=== PATIENT | male | born 1950 | race Caucasian/White ===

== ENCOUNTER 2019-08-31 08:02 | Day surgery (SDC) ==
--- NOTE | 2019-08-19 08:37 | EKG Report ---
Test Performed on : 08/19/2019 08:29:56 AM Test Reason : PAT Blood Pressure : / mmHG Vent. Rate : 064 BPM Atrial Rate : 064 BPM P-R Int : 168 ms QRS Dur : 086 ms QT Int : 386 ms P-R-T Axes : 072 051 067 degrees QTc Int : 398 ms Normal sinus rhythm. Normal ECG When compared with ECG of 22-APR-2019 08:07, No significant change was found Confirmed by Timbo RODRIGUES, P.J.M ([id number]) on 08/19/2019 7:59:19 PM
[2019-08-19 08:50] LABS: URINE SOURCE CLEAN CATCH
[2019-08-19 09:06] LABS: BASO# 0.03 X1000 (0.0-0.2); BASO% 0.5 % (0.0-0.8); EOS# 0.14 X1000 (0.0-0.7); EOS% 2.5 % (0.0-10.0); HEMATOCRIT 42.6 % (42.0-52.0); HEMOGLOBIN 13.9 g/dL (14.0-18.0); IMM GRAN# 0.02 X1000 (0.0-0.04); IMM GRAN% 0.4 % (0.0-0.5); LYMPH# 1.33 X1000 (1.2-3.4); LYMPH% 23.6 % (20.5-51.1); MCH 27.9 PG (27-31); MCHC 32.6 g/dL (33-37); MCV 85.4 FL (81-99); MONO# 0.34 X1000 (0.11-0.59); MPV 9.7 FL (7.4-10.4); NEUT# 3.77 X1000 (1.4-6.5); PLT 198 X1000 (130-400); RBC 4.99 XMIL (4.7-6.1); RDW 12.8 % (11.5-14.5); WBC 5.63 X1000 (4.8-10.8)
[2019-08-19 09:15] LABS: BILIRUBIN URINE NEGATIVE (NEGATIVE); BLOOD URINE NEGATIVE (NEGATIVE); COLOR YELLOW; GLUCOSE URINE NEGATIVE (NEGATIVE); KETONE URINE NEGATIVE (NEGATIVE); LEUKOCYTES URINE NEGATIVE (NEGATIVE); NITRITE URINE NEGATIVE (NEGATIVE); PH URINE 6.5; PROTEIN URINE NEGATIVE (NEGATIVE); SP GRAVITY URINE 1.017; TURBIDITY URINE CLEAR (CLEAR); UROBILINOGEN URINE NORMAL (NORMAL)
[2019-08-19 09:16] LABS: UR EPITHELIAL CELLS <10 /HPF (<10); URINE BACTERIA NEGATIVE /HPF; URINE RBC <10 /HPF (<10); URINE WBC <10 /HPF (<10)
[2019-08-19 09:23] LABS: INR 1.07
[2019-08-19 09:24] LABS: PTT 27.8 Seconds (22.3-41.8)
[2019-08-19 09:36] LABS: HEMOGLOBIN A1C 5.6 % (4.8-6.0)
[2019-08-19 09:43] LABS: AGAP 13; ALBUMIN 4.4 g/dL (3.5-5.0); BUN 18 mg/dL (8-22); CALCIUM 9.5 mg/dL (8.8-10.2); CHLORIDE 100 mmol/L (98-107); COSMO 275; ESTIMATED GFR > 60; GLUCOSE 93 mg/dL (70-104); POTASSIUM 4.2 mmol/L (3.5-5.1); SODIUM 137 mmol/L (136-145); TCO2 24 mmol/L (25-35)
[2019-08-31] MEDS ORDERED: VERSED ONE (08:14)
[2019-08-31] MEDS ORDERED: FENTANYL ONE (08:14)
[2019-08-31] MEDS ORDERED: XYLOCAINE-MPF 2% ONE (08:15)
[2019-08-31] MEDS ORDERED: DECADRON ONE (08:15)
[2019-08-31] MEDS ORDERED: OFIRMEV 1000 MG/ISOTONIC SOLN 1,000 MG/100 ML BOTTLE ONE (08:15)
[2019-08-31] MEDS ORDERED: ZOFRAN ONE (08:15)
[2019-08-31] MEDS ORDERED: COLACE ONE (08:35)
[2019-08-31] MEDS ORDERED: LYRICA ONE (08:36)
[2019-08-31] MEDS ORDERED: LR 1,000 ML ONE (08:36)
[2019-08-31] MEDS ORDERED: PEPCID ONE (08:36)
[2019-08-31] MEDS ORDERED: KEFZOL 1 GM/D5W 2 GM/100 ML IVPB ONE (08:36)
[2019-08-31] MEDS ORDERED: REGLAN ONE (08:36)
[2019-08-31] MEDS ORDERED: CELEBREX ONE (08:36)
[2019-08-31] MEDS ORDERED: DUONEB (A & A) ONE (09:34)
[2019-08-31] MEDS ORDERED: DIPRIVAN 1% 500 MG/50 ML BOTTLE ONE (10:03)
[2019-08-31] MEDS ORDERED: VANCOMYCIN ONE (10:09)
[2019-08-31] MEDS ORDERED: TORADOL ONE (10:09)
[2019-08-31] MEDS ORDERED: DURAMORPH ONE (10:09)
[2019-08-31] MEDS ORDERED: MARCAINE 0.25% PF ONE (10:09)
[2019-08-31] MEDS ORDERED: EXPAREL 1.3% ONE (10:10)
[2019-08-31] MEDS ORDERED: CYKLOKAPRON 1,000 MG/NS 2,000 MG/200 ML IVPB ONE (10:10)
[2019-08-31] MEDS ORDERED: SODIUM CHLORIDE 0.9% ONE (10:10)
[2019-08-31] MEDS ORDERED: DIPRIVAN 1% ONE (12:44)
[2019-08-31] MEDS ORDERED: OXY IR PO PRN (13:00)
[2019-08-31] MEDS ORDERED: MILK OF MAGNESIA PO PRN (13:00)
[2019-08-31] MEDS ORDERED: ZOFRAN IV PRN (13:00)
[2019-08-31] MEDS ORDERED: MORPHINE IV PRN ×3 (13:00)
[2019-08-31] MEDS ORDERED: ZOFRAN ODT PO PRN (13:00)
[2019-08-31] MEDS ORDERED: NS 1,000 ML ONE (13:25)
[2019-08-31 13:44] LABS: URINE SOURCE CATH
[2019-08-31 14:03] LABS: BILIRUBIN URINE NEGATIVE (NEGATIVE); BLOOD URINE NEGATIVE (NEGATIVE); COLOR YELLOW; GLUCOSE URINE NEGATIVE (NEGATIVE); KETONE URINE NEGATIVE (NEGATIVE); LEUKOCYTES URINE NEGATIVE (NEGATIVE); NITRITE URINE NEGATIVE (NEGATIVE); PH URINE 6.5; PROTEIN URINE NEGATIVE (NEGATIVE); SP GRAVITY URINE 1.015; TURBIDITY URINE CLEAR (CLEAR); UROBILINOGEN URINE NORMAL (NORMAL)
[2019-08-31 14:06] LABS: UR EPITHELIAL CELLS <10 /HPF (<10); URINE BACTERIA NEGATIVE /HPF; URINE RBC <10 /HPF (<10); URINE WBC <10 /HPF (<10)
[2019-08-31] MEDS: NS 1,000 ML IV SCH (17:23)
[2019-08-31] MEDS: ULTRAM PO SCH ×2 (17:24→21:05)
[2019-08-31] MEDS: TYLENOL PO SCH ×2 (17:24→21:04)
[2019-08-31] MEDS ORDERED: VENTOLIN HFA INH PRN (17:28)
--- NOTE | 2019-08-31 17:39 | OPERATIVE NOTE ---
PROCEDURE DATE: 08/31/2019 PREOPERATIVE DIAGNOSIS: Left knee degenerative joint disease. POSTOPERATIVE DIAGNOSIS: Left knee degenerative joint disease. PROCEDURE PERFORMED: Left total knee arthroplasty using a [facility] size 7 femoral component, size 7 tibial base plate, a 14 mm articular insert and a 35 mm patellar component. ANESTHESIA: Spinal. SURGEON: Aime Neri MD. WATER POLLUTION CONTROL INSPECTOR: VANESSA Salas, who was present throughout the case and whose assistance was necessary for successful completion of the case. BLOOD LOSS: Minimal. TOURNIQUET TIME: Approximately an hour. DESCRIPTION OF PROCEDURE: The patient was brought to the operative suite and placed in a supine position. After successful administration of spinal anesthesia, a well-padded tourniquet was placed on left proximal thigh. The left lower extremity was prepped and draped in usual sterile fashion. Leg was exsanguinated. Tourniquet insufflated to 350 torr. A longitudinal incision was made beginning at the superior pole of patella and extended distally to the tibial tuberosity. A medial arthrotomy was made with the elevation of the capsule off the medial tibial plateau. The ACL, PCL, medial meniscus and lateral meniscus were excised. A drill was entered in the distal femur. Intramedullary guide was placed. Distal cutting block was pinned in placed. Distal cut was made with oscillating saw. Attention was then directed to the tibia. A drill was entered in the center tibia. Intramedullary guide was placed. Alignment was checked with drop sarah referencing off the anterior cortex of the tibia and the second ray of the foot and taking 4 mm off the low side of the tibia, which in this case was medially. The articular surface of the tibial plateau was removed with oscillating saw. Being certain all meniscal tissue was removed, he was found to be in extension tight medially. A medial release was performed, and the knee was balanced at 14 mm after setting rotation using the gap balancing method set to 23 mm, and the femur was sized to a size 7. A size 7 cutting block was pinned into place. The anterior cuts, chamfer cuts, and posterior condylar cuts were made with an oscillating saw. The box cutting block was pinned into place. A box cut was made with a box osteotome and oscillating saw. Posterior condyle osteophytes were removed with a curved osteotome and rongeur. Attention was then directed back to the tibia. The tibia was sized to a size 7. A size 7 guide was used for the fin punch. The tibial trial, femoral trial and 14 mm articular insert were placed, taken through range of motion and found to have excellent alignment, balancing range of motion. Attention was directed to the patella, and 9 mm of the articular surface of the patella was removed with oscillating saw, patella sized to a size 35. A size 35 guide was used to drill peg holes. Lateral facet was chamfered 30 to 45 degrees. Patella trial was placed and taken through range of motion and found to have excellent patella tracking. All trials were then removed. The knee was copiously irrigated and dried, being certain all bone debris was removed. The tibial component, femoral component, and patellar component were cemented into place, and excess cement being removed with a [place]. Once the cement had hardened, excess cement was again removed with osteotome. The knee was again copiously irrigated and dried, being certain all bone, and cement were removed. The trial articular insert was removed. The knee was copiously infiltrated with Exparel, including posterior capsule, anterior capsule, intermuscular, and subcutaneous tissue. The tourniquet was deflated, and hemostasis was obtained with electrocautery. The definitive 14 mm insert was locked into place. The knee was again copiously irrigated with normal saline containing irrigant and Vashe irrigation. Medial arthrotomy was closed with 0 V-Loc. The skin edge was approximated with 2-0 Vicryl. The skin was closed with Prineo and a sterile dressing was applied. The patient tolerated the procedure well without complication. At the end of the procedure, all counts were correct x2. The patient was transferred to the recovery room in stable condition. cc: Aime Neri MD
[2019-08-31] MEDS: KEFZOL 2 GM/D5W 2 GM/50 ML IVPB IV SCH (18:09)
[2019-08-31] MEDS ORDERED: TOPROL XL PO SCH (21:00)
[2019-08-31] MEDS ORDERED: SINGULAIR PO SCH (21:00)
[2019-08-31] MEDS ORDERED: ZOCOR PO SCH (21:00)
[2019-08-31] MEDS: LYRICA PO SCH (21:02)
[2019-08-31] MEDS: PERIDEX MT SCH (21:02)
[2019-08-31] MEDS: COLACE PO SCH (21:03)
[2019-08-31] MEDS: OXY IR PO PRN (22:42)
[2019-09-01] MEDS: NS 1,000 ML IV SCH (03:04)
[2019-09-01] MEDS: KEFZOL 2 GM/D5W 2 GM/50 ML IVPB IV SCH (03:04)
[2019-09-01] MEDS: TYLENOL PO SCH ×2 (04:13→08:05)
[2019-09-01] MEDS: ULTRAM PO SCH ×2 (04:13→08:06)
[2019-09-01 06:53] LABS: HEMATOCRIT 33.9 % (42.0-52.0); HEMOGLOBIN 10.8 g/dL (14.0-18.0)
[2019-09-01 07:04] VITALS: BP 125/61
[2019-09-01 07:31] LABS: AGAP 12; BUN 19 mg/dL (8-22); CALCIUM 8.1 mg/dL (8.8-10.2); CHLORIDE 101 mmol/L (98-107); COSMO 279; ESTIMATED GFR > 60; GLUCOSE 159 mg/dL (70-104); POTASSIUM 4.1 mmol/L (3.5-5.1); SODIUM 137 mmol/L (136-145); TCO2 24 mmol/L (25-35)
[2019-09-01] MEDS: OXY IR PO PRN (07:57)
[2019-09-01] MEDS: LYRICA PO SCH (08:06)
[2019-09-01] MEDS: COLACE PO SCH (08:07)
[2019-09-01] MEDS: PERIDEX MT SCH (08:07)
[2019-09-01] MEDS ORDERED: SALINE LOCK IV FLUID XX ONE (08:17)
[2019-09-01] MEDS ORDERED: ZOLOFT PO SCH (09:00)
[2019-09-01] MEDS ORDERED: DECADRON IV ONE (09:00)
[2019-09-01] MEDS ORDERED: HYTRIN PO SCH (09:00)
[2019-09-01] MEDS ORDERED: PRINIVIL PO SCH (09:00)
[2019-09-01] MEDS ORDERED: ASPIRIN PO SCH (09:00)
[2019-09-01] MEDS ORDERED: PRILOSEC PO SCH (09:00)
[2019-09-01] MEDS ORDERED: MOBIC PO SCH (09:00)
[2019-09-01] MEDS ORDERED: NON-FORMULARY MED (Meloxicam 15 MG) PO SCH (21:00)
--- NOTE | 2019-09-02 09:47 | DISCHARGE SUMMARY ---
ADMISSION DATE: 08/31/2019 DISCHARGE DATE: 09/01/2019 DISCHARGE DIAGNOSIS: Left knee degenerative joint disease status post left total knee arthroplasty. DISCHARGE MEDICATIONS: See discharge med list medication list. DISPOSITION: The patient discharged home with home health physical therapy. Instructed to return for any signs or symptoms of infection, deep venous thrombosis. Instructed to return to see Dr. Neri next . HOSPITAL COURSE: On the day of admission, patient underwent a left total knee arthroplasty. His postoperative course was unremarkable. At discharge he is afebrile, tolerating a regular diet, ambulating well with physical therapy. His wound is clean, dry, intact without sign of infection. His calf is soft without sign of DVT. He is discharged home in stable condition with instructions to follow up as described above. cc: Aime Neri MD
== END 2019-09-01 10:43 | disposition home or self-care (01) ==
LOC: OR 08:02 → 4N 08:02 → OR 09-01 10:43
PROVIDERS: ATTEND Orthopaedic Surgery